=== PATIENT | male | born 1945 | race Caucasian/White ===

== ENCOUNTER 2018-04-24 06:41 | Inpatient (IN) | payer OTHER, SELFPAY ==
[2018-04-11 13:55] VITALS: BMI 30.7
[2018-04-24] VITALS (21 sets, daily range): BP systolic 110–148; BP diastolic 64–89; PULSE 68–94; RESP 7–19; TEMP 35.7–37.3; O2SAT 91–100; BMI 30.7
--- NOTE | 2018-04-24 | DI.RAD.S_ITS ---
PROCEDURE: XR PELVIS 1-2V INDICATIONS: RIGHT HIP intraoperative TECHNIQUE: Intra-operative view of the pelvis and hip acquired. COMPARISON: None. FINDINGS: Bones: Intraoperative devices prior to placement of arthroplasty prostheses are in expected positions. No fractures or suspicious bony lesions. Soft tissues: Overlying surgical retractors are present, along with other intraoperative changes. IMPRESSION: Normal alignment established during preparation for placement of final components of right total hip arthroplasty. Dictated by: Shaggy Gambino M.D. on 04/24/2018 at 10:42 Approved by: Shaggy Gambino M.D. on 04/24/2018 at 10:42
--- NOTE | 2018-04-24 | DI.RAD.S_ITS ---
PROCEDURE: XR HIP W PEL IF DONE RT 2V INDICATIONS: Post operative right hip TECHNIQUE: AP pelvis and lateral view of the right hip acquired. COMPARISON: [facility], CR, XR PELVIS 1-2V, 04/24/2018, 9:52. [facility], CR, XR PELVIS WITH LATERAL HIP RIGHT, 03/14/2018, 14:40. [facility], MR, HIP WITHOUT CONTRAST, 03/08/2018, 15:05. FINDINGS: Bones: Patient is status post right hip arthroplasty, with hardware components in expected positions. The hip joint appears congruent. The visualized bony structures appear intact. Soft tissues: Overlying postoperative changes are noted. No suspicious soft tissue densities. IMPRESSION: Normal alignment established after right total hip arthroplasty, with a surgical drain overlying the operative bed. Dictated by: Shaggy Gambino M.D. on 04/24/2018 at 11:42 Approved by: Shaggy Gambino M.D. on 04/24/2018 at 11:42
[2018-04-24] MEDS: VANCOMYCIN 1,000 MG/200 ML FROZ.PIGGY 200 MG IV (07:12)
[2018-04-24] MEDS: LACTATED RINGERS 1,000 ML 42 ML IV ×2 (07:12→11:08)
[2018-04-24] MEDS: CEFAZOLIN 1 GM VIAL 2 GM IV (08:15)
[2018-04-24] MEDS: TRANEXAMIC ACID 1,000 MG VIAL 1000 MG INJ (08:25)
--- NOTE | 2018-04-24 08:54 | SUR.OPER ---
Lateral on padded OR bed. Gel axillary roll. Arms secured on padded armboard with pillow supporting top arm. Padded hip positioner braces x4 - anterior and posterior chest and pelvis. Additional gel pad used anterior pelvis. Gel pad under bottom left leg from knee to foot and secured with tape over sheet.
[2018-04-24] MEDS: BUPIVACAINE LIPOSOME 266 MG/20 ML VIAL INJ (09:09)
[2018-04-24] MEDS: BUPIVACAINE 0.25% W/ EPI 50 ML VIAL INJ (09:09)
[2018-04-24] MEDS: POVIDONE-IODINE 15 ML, SODIUM CHLORIDE 0.9% 250 ML TOP (09:49)
[2018-04-24] MEDS: SODIUM CHLORIDE IRRIG SOLUTION 250 ML, EPINEPHrine 1 MG IRR (09:51)
--- NOTE | 2018-04-24 11:21 | PM.OP.1 ---
Operative Date/Time/Diagnoses - Date of procedure: 04/24/18 Time of procedure: 08:21 Pre-op diagnosis: Right hip OA Post-op diagnosis: same Procedure & Clinicians Procedure: Right total hip arthroplasty Same procedure as scheduled: Yes Indications: The patient has had progressively worsening right hip pain with radiographic changes consistent with arthritis. Non-operative management has failed and the patient has requested total hip replacement. The risks, benefits and alternatives to surgery were discussed with the patient prior to proceeding. Risks discussed included, but were not limited to, failure to relieve pain, leg length discrepancy, dislocation, stiffness, infection, nerve damage, deep venous thrombosis, pulmonary embolism, stroke, coma, heart attack, permanent paralysis and , as well as the potential need for eventual revision of the prosthetic. Surgeon: Danya Vargas Workforce Development Specialist: Katie Pina Click Yes if Unassisted: No Anesthesia Type: Spinal Operative Notes Findings: Severe right hip osteoarthritis, adequate stability Closure Type: primary Specimen(s): none sent Implants & Drains: Vargas and Nephew 54 R3 cup neutral liner, anthology size 8 high offset +0 36 head Applied: drain(s) Estimated Blood Loss (mL): 250 Procedure in detail: The patient was seen in the pre-operative area, where the patient identified the right hip as the operative site and this was marked with my initials. The patient received pre-operative antibiotics and was taken to the operating room and placed on the operative table in the left lateral decubitus position after satisfactory anesthesia. A compounding assistant out was performed. The right leg was prepared from the ankle to the iliac crest with ChloroPrep in the usual fashion and draped through sterile drapes. The hip was approached through an approximately 20 cm incision centered over the greater trochanter and curving gently posteriorly as it went proximally. This was carried sharply to the fascia svetlana, which was divided and retracted with a self retaining retractor. The trochanteric bursa was excised with care being taken to avoid the sciatic nerve, which was identified and protected throughout the case. The short external rotators were incised and the capsulomuscular flap was raised and tagged for later repair. The hip was dislocated, and a femoral neck osteotomy performed approximately 15 mm above the lesser trochanter. Retractors were placed to expose the acetabulum. The labrum and central soft tissues were removed, as was the anterior capsule. Reaming was performed initially going up in 2 mm increments, then 1 mm increments until good bite was obtained with an odd sized reamer. The cup 1 mm larger than the last reamer was then inserted using the appropriate anteversion guides. A trial neutral liner was placed. We then turned our attention to the femur. The canal was opened with a box cutting osteotome, followed by a T handled reamer and a lateralizing reamer. The canal was prepared with sequential broaching. A trial head and neck were then placed and the hip relocated and checked for leg length and stability. The patient was stable in the position of sleep, of squatting, and could be put through a range of motion with 45 degrees internal rotation without dislocation. At 90 degrees flexion, internal rotation to 70 was possible before dislocation. This was felt to be satisfactory and the appropriate components were opened, and the trials were removed. The acetabular liner was impacted into position. The final stem was then impacted into the prepared femoral canal. Finally the femoral head was impacted onto the stem. The acetabulum was cleared of all material and the hip relocated one final time. Radiographs were obtained intra-operatively confirming the position of all components and confirming that there were no iatrogenic fractures. The wound was meticulously irrigated. There was a brief Betadine soak. The fascia was repaired with interrupted black braided nylon. The short external rotators were repaired with interrupted but braided nylon. A deep drain was placed. Subcutaneous tissues were closed with barbed stitch sutures and surgical glue. An Aquacel Ag dressing was applied and the patient was taken to recovery having tolerated the procedure well. Complications: none Condition: stable Disposition: Acute Care Plan for aftercare: The patient will be maintained on a standard total hip replacement protocol with weight bearing as tolerated and posterior hip precautions. The patient will receive aspirin and sequential compression devices for DVT prophylaxis. The patient will be discharged home when safe for the home environment.
--- NOTE | 2018-04-24 11:30 | SUR.PHASEI ---
Overhead paged Dr. Worthy for Tylenol order as pt c/o headache. No response.
[2018-04-24] MEDS: ONDANSETRON 4 MG/2 ML INJ IV (11:33)
[2018-04-24] MEDS: ACETAMINOPHEN 325 MG TABLET 650 MG PO ×2 (11:40→20:42)
--- NOTE | 2018-04-24 11:53 | SUR.PHASEI ---
Dr. Worthy and Dr. Vargas aware of headache. Both MDs spoke to the patient regarding his headache.
--- NOTE | 2018-04-24 11:55 | SUR.PHASEI ---
Pt declined additional antinausea medication.
--- NOTE | 2018-04-24 12:16 | SUR.PHASEI ---
Report to DIYA Peace
--- NOTE | 2018-04-24 12:36 | SUR.PHASEI ---
Pt vomited 100mls clear fluid after leaving pacu. Pt transported to the room, linens changed. Pt reported nausea improved. VS stable, DRSG CDI. + RT Pedal pulse. belongings bag with pt, spouse present. IV saline locked. Tegaderm on very small skin tear CDI, inspected with RN. HV patent.
--- NOTE | 2018-04-24 12:57 | SUR.OPER ---
UPON REPOSITIONING PATIENT BACK TO SUPINE FROM LATERAL POSITION A 2MM SKIN TEAR WAS NOTED ON HIS RIGHT UPPER BACK AND IT WAS CLEANED WITH ALCOHOL AND DREE
--- NOTE | 2018-04-24 13:00 | SUR.OPER ---
UPON REPOSITIONING PATIENT TO SUPINE FROM LATERAL A 2MM SKIN TEAR WAS NOTED ON RIGHT UPPER BACK. IT WAS CLEANED WITH ALCOHOL AND COVERED WITH A STERILE TEGADERM AND MD WAS NOTIFIED.
[2018-04-24] MEDS: METOCLOPRAMIDE 10 MG/2 ML INJ IV (13:18)
[2018-04-24] MEDS: LACTATED RINGERS 1,000 ML 100 ML IV ×2 (13:18→23:36)
--- NOTE | 2018-04-24 14:09 | PC.NURSE ---
Addendum entered by Nata Schneider R.N. 04/24/18 15:50: Placed on 2L O2 approx 1430. Patient was dozing off and de-saturating when asleep. Cont pulse ox on. SpO2 on 2L 97% asleep. Original Note: Post-op: Arrived to room 228 at 1225, awake and alert, oriented X3. Had 100 ml emesis during transport, and another 200 ml after that. Given IV Reglan per emar and patient reports some relief. BT+, hypoactive. Dressing to R hip C/D/I. Hemovac compressed w/ sanguinous drainage. Circulation to extremities WNL, PP+, cap refill <2 sec. Numbness from spinal improving but still present. Encouraged ankle waving when able, SCD's applied. Encouraged coughing and deep breathing. Using IS independently. On continuous pulse ox with sats in the mid 90's. Denies pain or discomfort. IVF per orders. No urge/sensation to void yet, urinal at bedside. Oriented to room and call light and encouraged to make needs known. Fall precautions in place. Light in reach, bed alarm.
--- NOTE | 2018-04-24 15:11 | PM.PREOP ---
Pre-operative Note Interval Note Pre-op Check: History & Physical Reviewed by Physician
[2018-04-24] MEDS: TAMSULOSIN 0.4 MG CAPSULE PO (16:19)
[2018-04-24] MEDS: CEFAZOLIN 2 GM/100 ML FROZ.PIGGY IV (16:24)
--- NOTE | 2018-04-24 17:17 | PC.NURSE ---
Addendum entered by Elma Rangel R.N. 04/24/18 21:38: Satisfactory post op course. Ambulated short distance in hallway w/staff w/o ioncidense. Dsg to right hip CDI, HV intact/patent. IV infusing via pump as per orders w/o incidense. Denies discomfort. Call light w/in reach. Continue w/plan of care. Original Note: Pt awake, visiting with family, Denies discomfort at this time. Aquacell dsg to right hip CDI, HV intact/patent. IV infusing as per orders via pump w/o incidense. Taking regular diet w/o nausea. Call light w/in reach.
[2018-04-24] MEDS: ASPIRIN EC 81 MG TABLET PO (20:40)
[2018-04-24] MEDS: FINASTERIDE 5 MG TABLET PO (20:47)
[2018-04-25] MEDS: CEFAZOLIN 2 GM/100 ML FROZ.PIGGY IV (00:09)
[2018-04-25] MEDS: ACETAMINOPHEN 325 MG TABLET 650 MG PO ×2 (03:22→09:02)
[2018-04-25 03:30] VITALS: BP 130/81; PULSE 89; RESP 16; TEMP 36.8; O2SAT 95
[2018-04-25 05:45] LABS: Hematocrit 34.3 % (41-53); Hemoglobin 11.8 g/dL (13.5-17.5)
[2018-04-25 08:03] VITALS: BP 113/89; PULSE 91; RESP 14; TEMP 36.8; O2SAT 95
--- NOTE | 2018-04-25 08:25 | PC.NURSE ---
Addendum entered by Promise Reeves R.N. 04/25/18 12:06: dc -scripts for oxycodone and zofran were given to pt spouse. Original Note: Addendum entered by Promise Reeves R.N. 04/25/18 12:03: DC - reviewed dc instructions with pt and spouse, belongings gathered, including bag, clothing, electronics, radha the earlier oxycodone w/o nausea, and providing adequate pain relief, [place] PT in to assist pt and behavioral therapy coordinator getting pt into car. Original Note: Addendum entered by Promise Reeves R.N. 04/25/18 11:30: ms/pain - after initially working with phys therapy, pt req pain medication, discussed oxycodone, pain 5 on scale 0/10, given 5mg as that is the dose prescribed for home rather than the 10mg ordered as pt would like to take the least amt possible, then continued to work with PT. Original Note: AM NOTE - alert, states r hip pain 1-2 while lying bed, does get up to 4-5 when mobilizing, discussed pain medications, currently tylenol providing adequate relief, was prescribed oxycodone prior to adm with oleary path, ra 98%, voiding adequately, denies nausea, bt present, hr 72, has been discharged home after phys therapy this am, verified with Shirley Gould, the hemovac should be dc'd prior to discharge, aquacell dsg c,d,i., some initial dizziness when up yest indu, none overnight when standing bedside to use urinal.
[2018-04-25] MEDS: MULTIVITAMIN 1 TABLET 1 TAB PO (09:01)
[2018-04-25] MEDS: ASPIRIN EC 81 MG TABLET PO (09:01)
[2018-04-25] MEDS: CHOLECALCIFEROL (VITAMIN D3) 1,000 UNIT TABLET 2000 UNIT PO (09:02)
[2018-04-25] MEDS: DOCUSATE 100 MG CAPSULE PO (09:02)
--- NOTE | 2018-04-25 11:19 | PT.IIE ---
Current Diagnoses Unilateral primary osteoarthritis, right hip (04/24/18) Surgery Performed Operation Date: 04/24/18 07:45 Actual Procedures p Total Hip Arthroplasty(Right) - Danya Vargas MD Surgical History (Last Updated 04/11/18 @ 14:23 by Mercy Banks, RN) History of appendectomy (Acute) Medical History (Last Updated 04/13/18 @ 08:43 by Mercy Banks, RN) Arthritis (Acute) Back pain (Acute) Benign prostatic hyperplasia (Acute) Bruises easily (Acute) Cataracts, bilateral (Acute) Former smoker (Acute) Fragile skin (Acute) Heartburn (Acute) Hepatitis (Acute) Impaired vision (Acute) Left hip pain (Acute) Motion sickness (Acute) Nocturia (Acute) Right bundle branch block (Acute) Seasonal allergies (Acute) Sinus drainage (Acute) Unilateral primary osteoarthritis, right hip (Acute) Urgency of urination (Acute) Urinary frequency (Acute) Physical Therapy Inpatient Evaluation/Re-Eval M1 PT/OT-IP Prior Functional Status Start: 04/25/18 10:50 Freq: NEEDED Status: Active Protocol: Document 04/25/18 09:45 IJS (Rec: 04/25/18 11:19 IJS [email or web address]) Medical Review Prior Functional Status Medical History Reviewed Yes Diet/Fluid Consistency Regular Communication [place] Mobility and Gait Independent without assistive device Activities of Daily Living and IADL's Independent but has assist from if needed. Prior Functional Level (Other details) Independent, has two step entry and has practiced with his FWW going in/out of the house. Has been to outpatient PT and has apts. set up to continue. Social History Household Members spouse Living Arrangements House Number of Floors (Floors) Two Floors Number of Stairs To Enter/Railing? 2 steps no railing Home Environment High Toilet Walk in Shower Home Equipment Front Wheel Walker Employment Status Retired Additional Social History Comment will help with dressing and bathing M2 PT-IP Current Condition Start: 04/25/18 10:50 Freq: NEEDED Status: Active Protocol: Document 04/25/18 09:45 IJS (Rec: 04/25/18 11:19 IJS [email or web address]) Physical Therapy Current Condition Current Condition Evaluation Date 04/25/18 Treatment Diagnosis Walking/gait disturbance Onset Date MARY right 04/24/18 Precautions Posterior Hip Precautions No Hip Flexion > 90 degrees No Hip Internal Rotation No Hip Adduction Weight Bearing Status Weight Bearing Status Weight Bear as Tolerated M3 PT-IP Subjective Start: 04/25/18 10:50 Freq: NEEDED Status: Active Protocol: Document 04/25/18 09:45 IJS (Rec: 04/25/18 11:19 IJS [email or web address]) Subjective Physical Therapy Visit Type Type Initial Evaluation Visit Start Time 09:45 Visit Stop Time 10:15 Total Visit Minutes 30 Number of ELECTRICAL HELPER Visits 0 Physical Therapy Visit Comments Patient Comments Wants to go home today, worried about getting in/out of the car. Patient/Caregiver Goals Independent with gait and assist from for ADL's. Therapy Pain Assessment Pain When Pain Assessed During Mobility Pain Present Pain Present Denied Pain M4 PT-IP Mobility and Gait Start: 04/25/18 10:50 Freq: NEEDED Status: Active Protocol: Document 04/25/18 09:45 IJS (Rec: 04/25/18 11:19 IJS [email or web address]) PT-Bed Mobility Assessment Supine to Sit Supine to Sit Contact Guard Assistance Minimal Assistance Sit to Supine Sit to Supine Contact Guard Assistance Minimal Assistance Scooting Scooting to Edge of Bed Independent PT-Transfer Assessment Sit to and From Stand Sit to and from Stand Contact Guard Assistance Equipment Transfer Assistive Device Gait Belt Front Wheeled Walker Orthotic/Prosthetic Devices or Brace: No Transfers Transfer Destination Chair Transfer Technique Stand Step Pivot Transfer Ability Level of Assist Standby Assistance Contact Guard Assistance Minimal Assistance Comments Mobility Comments Tends to want to internally rotate his right leg. Min assist for right leg on/off bed. Gait Assessment Gait Gait Assistance Required: Contact Guard Assist 1 Person Assist Distance (Feet) (feet) 150 Able to Maintain Weight Bearing Status Yes During Gait Assistive Devices Assistive Device Gait Belt Front Wheeled Walker Gait Deviations General Gait Pattern Antalgic Decreased Stride Length Comments Gait Comments Somewhat impulsive, cues for right LE placement with stand to sit. Stair Climbing Assessment Comments Stair Climbing Comments Pt. has practiced at home with his walker in/out of the house per instruction of his outpatient PT. He declines the need to practice. PT-Balance Assessment Sitting Balance and Reactions Static Sitting Balance Ability Normal Dynamic Sitting Balance Ability Normal Standing Balance and Reactions Static Standing Balance Ability Normal Dynamic Standing Balance Ability Good Device Used FWW M5 PT-IP Objective Assessments Start: 04/25/18 10:50 Freq: NEEDED Status: Active Protocol: Document 04/25/18 09:45 IJS (Rec: 04/25/18 11:19 IJS [email or web address]) Orientation Orientation/Cognition Level of Alertness Alert Orientation Name Age Birthday Month Date Year Day of Week Place Situation Language Function Ability No Deficits Noted Safety Awareness Understands Safety Issues Memory Description No Deficits Noted Gross Range of Motion Upper Extremity ROM Assessment Within Functional Limits Lower Extremity ROM Assessment Right Impaired Impairments Per MARY posterior protocal. Strength Upper Extremity Strength Assessment Within Functional Limits Lower Extremity Strength Assessment Within Functional Limits Coordination Assessment Gross Coordination Gross Coordination WNL Sensation Assessment Sensation Gross Sensation WNL Muscle Tone Muscle Tone WNL Yes M6 PT-IP Treatment Start: 04/25/18 10:50 Freq: NEEDED Status: Active Protocol: Document 04/25/18 09:45 IJS (Rec: 04/25/18 11:19 IJS [email or web address]) Physical Therapy Treatment Exercises Exercises Ankle Pumps Gluteal Sets Heel Slides Knee ROM Measurement Standing hip flexion, abduction and extension X 5 each Education Education Provided Precautions Weight Bearing Status Post-Op Packet Safety M7 PT-IP Assessment and Plan Start: 04/25/18 10:50 Freq: NEEDED Status: Active Protocol: Document 04/25/18 09:45 IJS (Rec: 04/25/18 11:19 IJS [email or web address]) PT Summary Assessment and Plan Potential Rehabilitation Potential Excellent Status of Condition at Evaluation Stable Summary Assessment Summary Post op day #1 with help of his will be safe to return home today. Goals Bed Mobility Goal Contact Guard Assistance Transfer Goal Standby Assistance Gait Goal Standby Assistance Gait Distance 200 Days to Meet Goals 1 Frequency of Treatment Frequency Of Treatment Twice a Day Treatment Plan Physical Therapy Treatment Plan Bed Mobility Training Transfer Training Gait Training Therapeutic Exercise Discharge Planning Other Recommendations and Next Treatment Assist with car transfer and Focus see for one more exercise/gait session this morning. Recommendations To Nursing Amount of Assist Needed 1 Person Assist Discharge Recommendations PT Discharge Recommendations Home Home with Assistance Outpatient PT Provider Visit Care Team Role Provider Type Corbin Castle MD Primary Care Provider Non-Staff Specialty: Family Practice Danya Vargas MD Admit Provider Physician Attending Provider Specialty: Orthopedic Surgery
[2018-04-25] MEDS: OXYCODONE IR 10 MG TABLET PO (11:25)
--- NOTE | 2018-04-25 12:43 | CM.DANOTE ---
DCP: assessment: case received, EMR reviewed, d/c order for home noted, met with pt and is . Introduced self and role. DCP template completed using info currently available. PT is a 72 year old male who admitted yesterday for a planned MARY. Surgeon: Dr. Vargas Payer: [employer] ADV Pt has worked with VINAYAK Aranda today and his has been present for caregiver training. Pt expresses eagerness for d/c today.Manoj will assist with and instr uct on the technique for car enter and exit. P: home today. Outpt therapy is set up
--- NOTE | 2018-04-25 13:56 | PT.IPTN ---
Current Diagnoses Unilateral primary osteoarthritis, right hip (04/24/18) Surgery Performed Operation Date: 04/24/18 07:45 Actual Procedures p Total Hip Arthroplasty(Right) - Danya Vargas MD Physical Therapy Treatment Note M2 PT-IP Current Condition Start: 04/25/18 10:50 Freq: NEEDED Status: Discharge Protocol: Document 04/25/18 09:45 IJS (Rec: 04/25/18 11:19 IJS [email or web address]) Physical Therapy Current Condition Current Condition Evaluation Date 04/25/18 Treatment Diagnosis Walking/gait disturbance Onset Date MARY right 04/24/18 Precautions Posterior Hip Precautions No Hip Flexion > 90 degrees No Hip Internal Rotation No Hip Adduction Weight Bearing Status Weight Bearing Status Weight Bear as Tolerated M3 PT-IP Subjective Start: 04/25/18 10:50 Freq: NEEDED Status: Discharge Protocol: Document 04/25/18 12:00 IJS (Rec: 04/25/18 13:55 IJS [email or web address]) Subjective Physical Therapy Visit Type Type Treatment Note Visit Start Time 12:00 Visit Stop Time 12:35 Total Visit Minutes 35 Physical Therapy Visit Comments Patient Comments Had a shower, has a little more pain now but still ready to go home. assisted with the shower and dressing with the PROJECTION CAMERA OPERATOR. Patient/Caregiver Goals Safely get patient in/out of the car. Therapy Pain Assessment Pain When Pain Assessed At Rest Pain Present Pain Present Pain Reported Location Headache Scale Used 5/10 Description Aching M4 PT-IP Mobility and Gait Start: 04/25/18 10:50 Freq: NEEDED Status: Discharge Protocol: Document 04/25/18 12:00 IJS (Rec: 04/25/18 13:55 IJS [email or web address]) PT-Transfer Assessment Sit to and From Stand Sit to and from Stand Standby Assistance Equipment Transfer Assistive Device Gait Belt Front Wheeled Walker Transfers Transfer Destination Car Transfer Technique Stand Step Pivot Transfer Ability Level of Assist Minimal Assistance Comments Mobility Comments Min assist for right LE, removed shoe to get his right leg in the car. Caregiver training with his to assist. Much better alignment of the right leg with sit to stand. Gait Assessment Gait Gait Assistance Required: Standby Assistance Distance (Feet) (feet) 250 Able to Maintain Weight Bearing Status Yes During Gait Assistive Devices Assistive Device Gait Belt Front Wheeled Walker Gait Deviations General Gait Pattern Antalgic Decreased Stride Length Factors Limiting Gait Function Factors Limiting Gait Function Pain Comments Gait Comments Encouraged to slow down and think through mobility. Stair Climbing Assessment Evaluation Level of Assist On Stairs Standby Assistance Contact Guard Assistance Minimal Assistance 1 Person Assistance Comments Stair Climbing Comments Declined to practice stairs. PT-Balance Assessment Sitting Balance and Reactions Static Sitting Balance Ability Normal Dynamic Sitting Balance Ability Normal Standing Balance and Reactions Static Standing Balance Ability Normal Dynamic Standing Balance Ability Good M5 PT-IP Objective Assessments Start: 04/25/18 10:50 Freq: NEEDED Status: Discharge Protocol: Document 04/25/18 09:45 IJS (Rec: 04/25/18 11:19 IJS [email or web address]) Orientation Orientation/Cognition Level of Alertness Alert Orientation Name Age Birthday Month Date Year Day of Week Place Situation Language Function Ability No Deficits Noted Safety Awareness Understands Safety Issues Memory Description No Deficits Noted Gross Range of Motion Upper Extremity ROM Assessment Within Functional Limits Lower Extremity ROM Assessment Right Impaired Impairments Per MARY posterior protocal. Strength Upper Extremity Strength Assessment Within Functional Limits Lower Extremity Strength Assessment Within Functional Limits Coordination Assessment Gross Coordination Gross Coordination WNL Sensation Assessment Sensation Gross Sensation WNL Muscle Tone Muscle Tone WNL Yes M6 PT-IP Treatment Start: 04/25/18 10:50 Freq: NEEDED Status: Discharge Protocol: Document 04/25/18 09:45 IJS (Rec: 04/25/18 11:19 IJS [email or web address]) Physical Therapy Treatment Exercises Exercises Ankle Pumps Gluteal Sets Heel Slides Knee ROM Measurement Standing hip flexion, abduction and extension X 5 each Education Education Provided Precautions Weight Bearing Status Post-Op Packet Safety M7 PT-IP Assessment and Plan Start: 04/25/18 10:50 Freq: NEEDED Status: Discharge Protocol: Document 04/25/18 12:00 IJS (Rec: 04/25/18 13:55 IJS [email or web address]) PT Summary Assessment and Plan Potential Rehabilitation Potential Excellent Status of Condition at Evaluation Stable Summary Assessment Summary POD #1 ready for discharge home with his as primary field care manager. Goals Other Goals Goals met Recommendations To Nursing Amount of Assist Needed 1 Person Assist Discharge Recommendations PT Discharge Recommendations Home Home with Assistance Outpatient PT
== END 2018-04-25 12:15 | disposition home or self-care (01) | DRG 470 ==
PROVIDERS: Admitting Provider Orthopaedic Surgery; PCP Specialist; Visit Provider Orthopaedic Surgery
PROC: 0SR90JZ Replacement of Right Hip Joint with Synthetic Substitute, Open Approach (ICD-10-PCS; CPT 27130; principal; 2018-04-24 07:45)
DX: M16.11 Unilateral primary osteoarthritis, right hip (principal); Z87.891 Personal history of nicotine dependence
CPT/HCPCS: 36415; 72170; 73502; 85014; 85018; 94760; 97110; 97116; 97161; 97530; C1776; C9290; J0171; J0690; J1100; J2250; J2274; J2405; J2704; J2765; J3370

== ENCOUNTER → 2019-05-21 13:50 | Outpatient (CLI) | payer OTHER, SELFPAY ==
[2018-04-24 14:52] VITALS: BMI 30.7
--- NOTE | 2019-05-21 | DI.ECHO.S_ITS ---
[facility]---------+ [facility] +---------+ : : [address] : [place] [address] : : : : [id number] : : : : Phone: [phone]+ Echocardiogram Report + + :Name: JEAN CORNELL Study Date: 05/21/2019 Height: 70 in : :[facility] Exam Location: [facility] Weight: 228 lb : : Gender: Male BSA: 2.2 m2 : :: 1945 Age: 74 yrs BP: 140/85 mmHg: :Reason For Study: Edema : : Performed By: Dede Page : :Referring: EMI LOPEZ : + + Interpretation Summary The left ventricle is normal in size. The ejection fraction is estimated to be 55-60%. There appears to be subtle to mild hypokinesis of mid to distal anterolateral wall extending into the distal posterolateral wall. The right ventricle is mildly dilated. The right ventricular systolic function is normal. There is mild aortic regurgitation. The ascending aorta is mildly enlarged. An echogenic shadow seen in the aortic arch. Differential diagnosis: Large pedunculated atherosclerotic plaque versus an artifact. Procedure: A two-dimensional transthoracic echocardiogram with color flow and Doppler was performed. The study quality was technically adequate. There is no prior echocardiogram noted for this patient. The patient was in normal sinus rhythm during the exam. The patient had occasional PVCs during the exam. Left Ventricle: The left ventricle is normal in size. There is no thrombus. The ejection fraction is estimated to be 55-60%. There appears to be subtle to mild hypokinesis of mid to distal anterolateral wall extending into the distal posterolateral wall. Diastolic parameters suggest a relaxation abnormality of the left ventricle, consistent with probable normal filling pressures. Right Ventricle: The right ventricle is mildly dilated. The right ventricular systolic function is normal. Atria: The left atrium is mildly dilated. Right atrial size is normal. There is no Doppler evidence for an interatrial shunt. Mitral Valve: There is mild mitral annular calcification. There is trace mitral regurgitation. Aortic Valve: The aortic valve is trileaflet. The aortic valve opens well. The aortic valve is mildly calcified. There is no aortic valve stenosis. There is mild aortic regurgitation. Tricuspid Valve: The tricuspid valve is normal. Pulmonary artery pressures cannot be estimated because of the lack of a measurable TR jet velocity. There is trace tricuspid regurgitation. Pulmonic Valve: The pulmonic valve is not well visualized. There is trace pulmonic regurgitation. Great Vessels: The aortic root is borderline dilated. The ascending aorta is mildly enlarged. An echogenic shadow seen in the aortic arch. Differential diagnosis: Large pedunculated atherosclerotic plaque versus an artifact. The pulmonary artery is not well visualized, but is probably normal size. The IVC is of normal diameter and collapses greater than 50% with a sniff. This suggests a low right atrial pressure of 3 mm Hg. Pericardium/ Pleura There is no pericardial effusion. There is no pleural effusion. MMode/2D Measurements & Calculations LVIDd: 4.7 cm LVOT diam: 2.5 cm LVIDs: 3.1 cm Ao root diam: 3.9 cm FS: 34.1 % asc Aorta Diam: 3.7 cm EPSS: 0.91 cm IVSd: 0.86 cm LVPWd: 0.85 cm LV thomas. diameter/BSA (cm/m^2): 2.1 LV sys. diameter/BSA (cm/m^2): 1.4 LA A2 area: 22.6 cm2 RA long axis: 5.0 cm LA A4 area: 24.3 cm2 RA area: 18.4 cm2 LA length (vol): 6.0 cm RA vol: 57.8 ml LA vol: 77.7 ml RA : 26.2 ml/m2 LA vol index: 35.2 ml/m2 IVC diam: 1.8 cm RVD1 (basal): 4.5 cm RVD2 (mid): 4.3 cm TAPSE: 2.1 cm Doppler Measurements & Calculations Ao V2 max: 135.8 cm/sec LVOT Max Adi: 88.4 cm/sec Ao V2 mean: 90.6 cm/sec LV V1 max P.1 mmHg Ao max P.4 mmHg LV V1 VTI: 16.6 cm Ao mean P.7 mmHg JESSICA(I,D): 3.6 cm2 Ao V2 VTI: 23.1 cm JESSICA(V,D): 3.2 cm2 sev ratio: 0.72 JESSICA indexed to BSA (cm^2/m^2): 1.6 MV E max adi: 58.2 cm/sec PA V2 max: 68.4 cm/sec MV A max adi: 85.7 cm/sec PA V2 mean: 49.6 cm/sec MV E/A: 0.68 PA mean P.1 mmHg Med Peak E' Adi: 4.9 cm/sec PA Accel Time: 0.14 sec E/E' med: 12.0 Lat Peak E' Adi: 4.5 cm/sec E/E' lat: 12.8 E/e' average: 12.4 MV dec time: 0.24 sec MV P1/2t: 69.9 msec MV P1/2t max adi: 57.9 cm/sec SV(LVOT): 82.1 ml MVA(P1/2t): 3.1 cm2 Reading Physician:VARGAS
== END ==
PROVIDERS: PCP Specialist; Visit Provider Specialist
DX: I35.1 Nonrheumatic aortic (valve) insufficiency (principal); I77.89 Other specified disorders of arteries and arterioles
CPT/HCPCS: 93306